=== PATIENT | female | born 1980 | race Caucasian/White ===

== ENCOUNTER 2021-12-16 16:47 | Emergency (ER) | payer OTHER, MEDICAID, SELFPAY ==
[2021-12-16 16:57] VITALS: BP 128/72; PULSE 77; RESP 20; TEMP 36.6; O2SAT 98; BMI 40.6
[2021-12-16 17:30] LABS: Add Manual Diff / Slide Review NO; Basophils Absolute Auto 0 /uL (0-100); Basophils Percent Auto 0.6 % (0-2); Eosinophils Absolute Auto 100 /uL (0-450); Eosinophils Percent Auto 1.9 % (2-4); Hematocrit 36.1 % (36-46); Hemoglobin 12.8 g/dL (12.0-16.0); Lymphocytes Absolute Auto 2600 /uL (1100-4500); Mean Corpuscular HGB Conc 35.6 % (30-36); Mean Corpuscular Hemoglobin 29.5 PG (26-34); Mean Corpuscular Volume 82.9 fL (80-100); Monocytes Absolute Auto 900 /uL (0-900); Monocytes Percent Auto 15.6 % (3-14); Neutrophils Absolute Auto 1900 /uL (1500-7000); Neutrophils Percent Auto 33.9 % (50-75); Platelet Count 233 X10^3/uL (150-400); Red Blood Cell Count 4.35 X10^6/uL (4.0-5.2); Red Cell Distribution Width 12.5 % (11.6-14.8); White Blood Cell Count 5.5 X10^3/uL (4.5-11.0)
[2021-12-16 17:33] LABS: Alanine Aminotransferase 37 IU/L (<35); Albumin 4.4 g/dL (3.5-5.0); Alkaline Phosphatase 53 U/L (38-126); Aspartate Aminotransferase 47 IU/L (14-36); BUN Creatinine Ratio 17.9 (6-22); Bilirubin Total 0.4 mg/dL (0.2-1.3); Blood Urea Nitrogen 12 mg/dL (7-17); Calcium 9.4 mg/dL (8.4-10.2); Carbon Dioxide 27 mmol/L (22-32); Chloride 104 mmol/L (98-107); Estimated Glomerular Filt Rate > 60 mL/min (>60); Globulin 4.2 g/dL (1.7-4.1); Glucose 85 mg/dL (70-100); HEMOLYSIS < 15 (0-50); Lipase 38 U/L (23-300); Sodium 139 mmol/L (137-145); Total Protein 8.6 g/dL (6.3-8.2)
--- NOTE | 2021-12-16 21:12 | ED_ITS ---
HPI - Abdominal Pain General Chief Complaint: Abdominal Pain Stated Complaint: Lower Abd Pain/Pain w/Urination/Bloody Discharge Time Seen by Provider: 12/16/21 21:04 Source: patient Mode of arrival: Ambulatory History of Present Illness HPI narrative: Patient is a 41-year-old female history of endometriosis, with full hysterectomy presenting with bloody urine for about 1 week. She is having flank pain as well. She said that she was seen evaluated at [facility] there she had a fever and elevated white count. However she was not found to have an infection and not discharged home on any antibiotics. At not confirm this with records. She says she still having some bleeding on. She has not had any vaginal bleeding since 2014 when she had her hysterectomy. She is having some mild cramping. Related Data Previous Rx's Medication Instructions Recorded nitrofurantoin 100 mg PO Q12H 5 days #10 caps 12/16/21 monohydrate/macrocrystals 100 mg capsule (Macrobid) Allergies Allergy/AdvReac Type Severity Reaction Status Date / Time iodine Allergy Verified 12/16/21 17:00 povidone-iodine Allergy Verified 12/16/21 17:00 [From Betadine] shellfish derived Allergy Verified 12/16/21 17:00 NSAIDS (Non-Steroidal AdvReac Verified 12/16/21 17:00 Anti-Inflamma Review of Systems Review of Systems Narrative: GENERAL: Denies chills, fatigue, malaise, fever, sweats, travel HEENT: Denies sinus pain, ear pain, sore throat, difficulty swallowing, neck pain RESPIRATORY: Denies dyspnea, cough, wheezing, hemoptysis, sputum. CARDIOVASCULAR: Denies chest pain, palpitations, orthopnea, edema GASTROINTESTINAL: Denies nausea, vomiting, abdominal pain, diarrhea, constipation, melena. : Denies dysuria, frequency, incontinence, hematuria, urinary retention, flank pain. MUSCULOSKELETAL: Denies weakness, joint pain, or bony pain SKIN: No rash, no erythema, no pruritus NEUROLOGIC: Denies weakness, dizziness, headache, numbness, change in speech, confusion PSYCHIATRIC: No concerning psychosocial issues. 12 point review of systems is negative except for those stated above and HPI Exam Initial Vital Signs Initial Vital Signs: Vital Signs Temperature 97.9 F 12/16/21 16:57 Pulse Rate 77 12/16/21 16:57 Respiratory Rate 20 12/16/21 16:57 Blood Pressure 128/72 12/16/21 16:57 Pulse Oximetry 98 12/16/21 16:57 Oxygen Delivery Method 12/16/21 16:57 GENERAL: Alert slightly anxious 41-year-old female without acute distress. HEENT: Head atraumatic,EOMI, pupils reactive, face symmetric, moist mucous membranes CARDIOVASCULAR: Regular rate and rhythm without murmurs, rubs or gallops. RESPIRATORY: Breath sounds equal bilaterally, no wheezes rales or rhonchi. ABDOMEN: Soft, nontender. Normoactive bowel sounds all 4 quadrants. No guarding or rebound. : No CVA tenderness EXTREMITIES: Normal range of motion, no clubbing or edema. Neurovascularly inta ct NEUROLOGICAL: Alert and oriented x4.Normal gait and speech. SKIN: Warm, dry, no laceration, no petechiae, no rashes or lesions. Course Orders Ordered: ED Orders 12/16/21 19:00 Urinalysis and Microscopic Stat 12/16/21 21:47 Urine Culture Stat Discontinued Medications Nitrofurantoin Macrocrystals (Nitrofurantoin 100mg Prepack) 1 bottle [facility] [place] Stop: 12/16/21 22:35 Last Admin: 12/16/21 23:03 Dose: Not Given Documented By: SANDRA Nitrofurantoin Macrocrystals (Nitrofurantoin Er 100 Mg Capsule) 100 mg PO NOW ONE Stop: 12/16/21 22:52 Last Admin: 12/16/21 23:03 Dose: 100 mg Documented By: SANDRA Vital Signs Vital signs: Vital Signs - 8 hr 12/16/21 23:04 Pulse Rate 75 Respiratory Rate 15 Pulse Oximetry 98 Oxygen Delivery Method Room Air MDM - Abdominal Pain Lab Data Result diagrams: 12/16/21 17:15 12/16/21 17:15 Labs: Lab Results 12/16/21 12/16/21 12/16/21 Range/Units 17:15 17:15 19:00 WBC 5.5 (4.5-11.0) X10^3/uL RBC 4.35 (4.0-5.2) X10^6/uL Hgb 12.8 (12.0-16.0) g/dL Hct 36.1 (36-46) % MCV 82.9 (80-100) fL MCH 29.5 (26-34) PG MCHC 35.6 (30-36) % RDW 12.5 (11.6-14.8) % Plt Count 233 (150-400) X10^3/uL Neut % (Auto) 33.9 L (50-75) % Lymph % (Auto) 48.0 H (25-40) % Lares % (Auto) 15.6 H (3-14) % Eos % (Auto) 1.9 L (2-4) % Baso % (Auto) 0.6 (0-2) % Neut # (Auto) 1900 (0563-6661) /uL Lymph # (Auto) 2600 (7300-2208) /uL Lares # (Auto) 900 (0-900) /uL Eos # (Auto) 100 (0-450) /uL Baso # (Auto) 0 (0-100) /uL Sodium 139 (137-145) mmol/L Potassium 4.0 (3.4-5.1) mmol/L Chloride 104 (98-107) mmol/L Carbon Dioxide 27 (22-32) mmol/L BUN 12 (7-17) mg/dL Creatinine 0.67 (0.52-1.04) mg/dL Estimated GFR > 60 (>60) mL/min BUN/Creatinine Ratio 17.9 (6-22) Glucose 85 (70-100) mg/dL Calcium 9.4 (8.4-10.2) mg/dL Total Bilirubin 0.4 (0.2-1.3) mg/dL AST 47 H (14-36) IU/L ALT 37 H (<35) IU/L Alkaline Phosphatase 53 (38-126) U/L Total Protein 8.6 H (6.3-8.2) g/dL Albumin 4.4 (3.5-5.0) g/dL Globulin 4.2 H (1.7-4.1) g/dL Albumin/Globulin Ratio 1.0 (1.0-2.8) Lipase 38 (23-300) U/L Urine Color Yellow Urine Appearance Clear Urine pH 5.0 (4.5-8.0) Ur Specific [place] <=1.005 (1.000-1.035) Urine Protein Negative (Negative) Urine Glucose (UA) Negative (Negative) g/dL Urine Ketones Negative (NEGATIVE) Urine Occult Blood 2+ H (Negative) Urine Nitrate Positive H (Negative) Urine Bilirubin Negative (NEGATIVE) Urine Urobilinogen 0.2 (0.2) E.U./dL Ur Leukocyte Esterase 1+ H (NEGATIVE) Urine RBC 0-1/hpf (0-5/HPF) Urine WBC 5-10/hpf H (0-5/HPF) Ur Squamous Epith Cells 5-10 /hpf H (0-5/HPF) Urine Bacteria Many (>30) H (None) Ur Culture Indicated? Cult not indicated MDM Narrative Medical decision making narrative: Records from prior hospital have been received and reviewed. Today she does not have leukocytosis blood work is actually reassuring. She is positive for nitrates in her urine. Which is likely causing her hematuria. This is unlikely that her endometriosis has returned. Will start her on antibiotics to see if her symptoms improve. Discharge Plan Departure Patient Disposition: Home Clinical Impression: UTI (urinary tract infection) Instructions: DI for Urinary Tract Infection (UTI) Activity Restrictions/Additional Instructions: *You have been diagnosed with UTI *What to do: At this time you do have a bladder infection. your blood work has improved. *Continue to take medications as directed Macrobid 100 mg twice a day for 5 days *Follow up with your primary care provider in 2-3 days or call [phone] *Return to ER if you should have increasing pain fever persistent vomiting or any new, worsening or concerning symptoms Prescriptions: New nitrofurantoin monohyd/m-cryst [Macrobid] 100 mg capsule 100 mg PO Q12H 5 Days Qty: 10 0RF Rx Instructions: must administer with a meal/food Referrals: Doctor Ruvalcaba MD [Primary Care Provider] - Visit Report Forms: Patient Portal/API
[2021-12-16 21:38] LABS: Appearance Urine UA CLEAR; Bilirubin Urine UA NEGATIVE (NEGATIVE); Color Urine UA YELLOW; Glucose Urine UA NEGATIVE (Negative); Ketones Urine UA NEGATIVE (NEGATIVE); Leukocyte Esterase Urine UA 1+ (NEGATIVE); Nitrite Urine UA POSITIVE (Negative); Occult Blood Urine UA 2+ (Negative); Protein Urine UA NEGATIVE (Negative); Specific Gravity Urine UA <=1.005 (1.000-1.035); Urobilinogen Urine UA 0.2 E.U./dL (0.2)
[2021-12-16 21:40] LABS: RBC Urine 0-1/HPF (0-5/HPF)
[2021-12-16 21:41] LABS: Bacteria Urine Many (>30); WBC Urine 5-10/HPF (0-5/HPF)
[2021-12-16 21:42] LABS: Culture Indicated Urine Cult Not Indicated; Squamous Epithelial Cell Urine 5-10 /HPF (0-5/HPF)
[2021-12-16] MEDS: NITROFURANTOIN ER 100 MG CAPSULE PO (23:03)
[2021-12-16 23:04] VITALS: PULSE 75; RESP 15; O2SAT 98
== END 2021-12-16 23:04 | disposition home or self-care (01) ==
PROVIDERS: Family Medicine Addiction Medicine; Emergency Provider Emergency Medicine
DX: N39.0 Urinary tract infection, site not specified (principal)
CPT/HCPCS: 80053; 81001; 83690; 85025; 87077; 87086; 87186; 99283

== ENCOUNTER 2022-02-14 16:00 | Emergency (ER) | payer OTHER, MEDICAID, SELFPAY ==
[2022-02-14 16:05] VITALS: BP 145/89; PULSE 82; RESP 20; TEMP 37.1; O2SAT 98; BMI 40.6
[2022-02-14 16:25] LABS: Pregnancy Test Urine Negative (Negative)
[2022-02-14 16:27] LABS: Appearance Urine UA CLEAR; Bilirubin Urine UA NEGATIVE (NEGATIVE); Color Urine UA YELLOW; Glucose Urine UA NEGATIVE (Negative); Ketones Urine UA NEGATIVE (NEGATIVE); Leukocyte Esterase Urine UA NEGATIVE (NEGATIVE); Nitrite Urine UA NEGATIVE (Negative); Occult Blood Urine UA NEGATIVE (Negative); Protein Urine UA NEGATIVE (Negative); Urobilinogen Urine UA 0.2 E.U./dL (0.2)
[2022-02-14 17:06] LABS: Bacteria Urine None Seen; Culture Indicated Urine Cult Not Indicated; RBC Urine None Seen (0-5/HPF); WBC Urine None Seen (0-5/HPF)
--- NOTE | 2022-02-14 20:55 | ED_ITS ---
HPI - Abdominal Pain General Chief Complaint: Abdominal Pain Stated Complaint: Burning sensation in stomach to groin Time Seen by Provider: 02/14/22 19:55 History of Present Illness HPI narrative: 41-year-old female nonsmoker with noncontributory medical history presents with a chief complaint of a pinpoint location of pain in her left lateral abdomen that has been present for about the past week. 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 This pain is sharp and stabbing if not burning in sensation and is worsened with heavy lifting and motion. She states that on occasion she gets a burning sensation that goes down to her groin. She is had no runny nose, sore throat or cough. She is no chest pain or shortness of breath. She denies nausea, vomiting or diarrhea. She denies dysuria, frequency or urgency. Related Data Allergies Allergy/AdvReac Type Severity Reaction Status Date / Time iodine Allergy Verified 12/16/21 17:00 povidone-iodine Allergy Verified 12/16/21 17:00 [From Betadine] shellfish derived Allergy Verified 12/16/21 17:00 NSAIDS (Non-Steroidal AdvReac Verified 12/16/21 17:00 Anti-Inflamma Review of Systems Review of Systems Narrative: GENERAL: Denies chills, fatigue, malaise, fever, sweats. HEENT: Denies sinus pain, ear pain, sore throat, difficulty swallowing, dizziness. RESPIRATORY: Denies dyspnea, cough, wheezing, hemoptysis, sputum. CARDIOVASCULAR: Denies chest pain, palpitations, orthopnea, edema, GASTROINTESTINAL: See HPI : Denies dysuria, frequency, incontinence, hematuria, urinary retention. MUSCULOSKELETAL: denies weakness, joint pain, or bony pain SKIN: Denies rash, skin lesions, or other NEUROLOGIC: Denies weakness, headache, numbness, change in speech, confusion, seizures, incoordination. PSYCHIATRIC: No concerning psychosocial issues. 12 point review of systems is negative except for those stated above Exam Narrative Exam Narrative: GENERAL: [41] year old patient appears stated age. Well-developed patient, in mild distress. HEAD: Atraumatic. Normocephalic. EYES: Pupils equal round and reactive. Extraocular motions intact. No scleral icterus. No injection or drainage. ENT: Nose without bleeding, purulent drainage. Throat without erythema, tonsillar hypertrophy or exudate. Airway patent. NECK: Trachea midline. Non tender CARDIOVASCULAR: Regular rate and rhythm without murmurs, gallops, or rubs. RESPIRATORY: Clear to auscultation. Breath sounds equal bilaterally. No wheezes, rales, or rhonchi. GASTROINTESTINAL: Abdomen soft, small area of tenderness left of the midline without palpable induration, erythema or fluctuance, no obvious hernia or rent noted., nondistended. Bowel sounds present in all 4 quadrants EXTREMITIES: No edema or joint tenderness. BACK: Nontender without deformity or crepitance. No flank tenderness. NEURO: AOx3. SKIN: No rash or erythema of visible areas Initial Vital Signs Initial Vital Signs: Vital Signs Temperature 98.7 F 02/14/22 16:05 Pulse Rate 82 02/14/22 16:05 Respiratory Rate 20 02/14/22 16:05 Blood Pressure 145/89 H 02/14/22 16:05 Pulse Oximetry 98 02/14/22 16:05 Oxygen Delivery Method 02/14/22 16:05 Course Orders Ordered: ED Orders 02/14/22 16:08 Test Urine Stat 02/14/22 16:24 Urinalysis and Microscopic Stat 02/14/22 21:09 XR acute abdomen series Stat Discontinued Medications Hydrocodone Bitart/Acetaminophen (Hydrocodone/Acet 5/325 Prepack) 1 bottle [facility] ONE Stop: 02/14/22 23:13 Cyclobenzaprine HCl (Cyclobenzaprine 10 Mg Prepack) 1 bottle [facility] ONE Stop: 02/14/22 23:13 Vital Signs Vital signs: Vital Signs - 8 hr 02/14/22 16:05 02/14/22 21:25 Temperature 98.7 F Pulse Rate 82 65 Respiratory Rate 20 18 Blood Pressure 145/89 H 131/72 Pulse Oximetry 98 99 Oxygen Delivery Method Room Air Room Air MDM - Abdominal Pain Lab Data Labs: Lab Results 02/14/22 02/14/22 Range/Units 16:08 16:24 Urine Color Yellow Urine Appearance Clear Urine pH 5.0 (4.5-8.0) Ur Specific [place] 1.010 (1.000-1.035) Urine Protein Negative (Negative) Urine Glucose (UA) Negative (Negative) g/dL Urine Ketones Negative (NEGATIVE) Urine Occult Blood Negative (Negative) Urine Nitrate Negative (Negative) Urine Bilirubin Negative (NEGATIVE) Urine Urobilinogen 0.2 (0.2) E.U./dL Ur Leukocyte Esterase Negative (NEGATIVE) Urine RBC None seen (0-5/HPF) Urine WBC None seen (0-5/HPF) Urine Bacteria None seen (None) Ur Culture Indicated? Cult not indicated Urine Test Negative (Negative) Imaging Data Abdominal x-ray: Radiologist's Impression: [address] [address] XRay Report Signed Patient: Lucy Frias MR#: [id number] : 1980 Acct:[id number] Age/Sex: 41 / F Date of Service: 02/14/22 Loc: ED Accession Number: [id number] ?? Procedure: XR acute abdomen series Ordering Provider: Parmjit King D.O. PROCEDURE:? XR ACUTE ABDOMEN SERIES ? INDICATIONS:? left sided abdominal pain ? TECHNIQUE:? One view chest and two views of the abdomen were acquired.? ? COMPARISON:? None. ? FINDINGS:? ? Surgical changes and devices:? None.? ? Chest:? Lungs are clear.? Heart size is normal.? No pleural effusions.? No pneumoperitoneum.? ? Abdomen:? Bowel gas pattern is normal.? No suspicious calcifications.? Visualized solid organ contours appear normal.? ? Bones:? No suspicious bony lesions.? ? IMPRESSION:? No acute radiographic abnormalities identified in the chest or abdomen. ? ? Dictated by: Musa Landeros M.D. on 02/14/2022 at 21:38 ? ? Approved by: Musa Landeros M.D. on 02/14/2022 at 21:39 ? MDM Narrative Medical decision making narrative: Multiple etiologies for patient's symptoms considered include, but not limited to: [Bowel obstruction versus kidney stone versus diverticulitis versus abdominal wall strain versus early hernia Patient's history and physical very reassuring, we had extensive bedside discussion regarding the need for further evaluation with labs or CT. Findings and discharge diagnosis discussed with patient/family followed by verbalization of understanding Return precautions discussed with patient/family whom verbalize understanding. Pain has been well controlled and patient is tolerating oral hydration. Discharge Plan Departure Patient Disposition: Home Clinical Impression: Abdominal pain Instructions: DI for Abdominal Pain-Adult Activity Restrictions/Additional Instructions: *You have been diagnosed with [left-sided abdominal pain, likely abdominal wall strain. No obvious evidence of hernia. History and physical exam are very reassuring and x-ray shows no sign of bowel obstruction or other obvious significant diagnosis] *What to do: *Please continue to take your regular medications as directed. *Please follow up with your primary care provider in 2-3 days, call for an appointment. Let them know you were seen in the Emergency Department and that we ask that you be seen in follow up. We will electronically transmit a record of today's note if your PCP is in our system *If you do not have a primary care provider please contact the [facility] Resource line at [phone]. They will ask some questions about your medical history and help get you set up with a doctor in the community. *Return to Emergency Department if you should have any new, worsening or concerning symptoms, such as [fever greater than 101 F, shaking chills, worsening pain, persistent vomiting or other bothersome symptoms] Referrals: Miscellaneous,Doctor, MD [Primary Care Provider] - Stand Alone Forms: Work Release Note
--- NOTE | 2022-02-14 21:09 | DI.RAD.S_ITS ---
PROCEDURE: XR ACUTE ABDOMEN SERIES INDICATIONS: left sided abdominal pain TECHNIQUE: One view chest and two views of the abdomen were acquired. COMPARISON: None. FINDINGS: Surgical changes and devices: None. Chest: Lungs are clear. Heart size is normal. No pleural effusions. No pneumoperitoneum. Abdomen: Bowel gas pattern is normal. No suspicious calcifications. Visualized solid organ contours appear normal. Bones: No suspicious bony lesions. IMPRESSION: No acute radiographic abnormalities identified in the chest or abdomen. Dictated by: Musa Landeros M.D. on 02/14/2022 at 21:38 Approved by: Musa Landeros M.D. on 02/14/2022 at 21:39
[2022-02-14 21:25] VITALS: BP 131/72; PULSE 65; RESP 18; O2SAT 99
[2022-02-14] MEDS: HYDROCODONE/ACET 5/325 PREPACK 1 BOTTLE MISC (23:21)
[2022-02-14] MEDS: CYCLOBENZAPRINE 10 MG PREPACK 1 BOTTLE MISC (23:21)
== END 2022-02-14 23:25 | disposition home or self-care (01) ==
PROVIDERS: Emergency Medicine; Emergency Provider Emergency Medicine
DX: R10.9 Unspecified abdominal pain (principal)
CPT/HCPCS: 74022; 81001; 81025; 99283

== ENCOUNTER → 2025-05-10 08:35 | Outpatient (CLI) | payer BC, OTHER, SELFPAY | DX: R23.2 Flushing (principal) | CPT/HCPCS: 82384; 83835 ==